=== PATIENT | male | born 1935 | race Caucasian/White ===

== ENCOUNTER 2022-09-15 09:46 | Emergency (ER) | payer MEDICARE, SELFPAY ==
[2022-09-15] VITALS (54 sets, daily range): BP systolic 100–167; BP diastolic 49–94; PULSE 55–84; RESP 13–40; TEMP 37.7; O2SAT 88–100; BMI 26.4
--- NOTE | 2022-09-15 09:49 | DI.RAD.S_ITS ---
PROCEDURE: XR CHEST 1V INDICATIONS: Weakness TECHNIQUE: One view of the chest was acquired. COMPARISON: None. FINDINGS: Surgical changes and devices: None. Lungs and pleura: Lungs are clear. No pleural effusions or pneumothorax. Mediastinum: Mediastinal contours appear normal. Heart size is normal. Bones and chest wall: No suspicious bony lesions. Overlying soft tissues appear unremarkable. IMPRESSION: No acute cardiopulmonary process demonstrated radiographically. Dictated by: Baron العراقي M.D. on 09/15/2022 at 10:22 Approved by: Baron العراقي M.D. on 09/15/2022 at 10:24
[2022-09-15 10:20] LABS: Add Manual Diff / Slide Review NO; Basophils Absolute Auto 0 /uL (0-100); Basophils Percent Auto 0.2 % (0-2); Eosinophils Absolute Auto 0 /uL (0-450); Eosinophils Percent Auto 0.9 % (2-4); Hematocrit 37.3 % (41-53); Hemoglobin 12.5 g/dL (13.5-17.5); Lymphocytes Absolute Auto 200 /uL (1100-4500); Mean Corpuscular HGB Conc 33.6 % (30-36); Mean Corpuscular Hemoglobin 30.1 PG (26-34); Mean Corpuscular Volume 89.5 fL (80-100); Monocytes Absolute Auto 700 /uL (0-900); Monocytes Percent Auto 14.8 % (3-14); Neutrophils Absolute Auto 3800 /uL (1500-7000); Neutrophils Percent Auto 79.1 % (50-75); Platelet Count 151 X10^3/uL (150-400); Red Blood Cell Count 4.17 X10^6/uL (4.5-5.9); Red Cell Distribution Width 13.6 % (11.6-14.8); White Blood Cell Count 4.8 X10^3/uL (4.5-11.0)
[2022-09-15 10:26] LABS: INR 1.2 (0.9-1.3); Prothrombin Time 13.9 SECONDS (10.1-12.7)
[2022-09-15] MEDS: SODIUM CHLORIDE 0.9% 1,000 ML 1000 ML IV (10:29)
[2022-09-15 10:31] LABS: Alanine Aminotransferase 26 IU/L (<50); Albumin 3.6 g/dL (3.5-5.0); Albumin Globulin Ratio 1.2 (1.0-2.8); Alkaline Phosphatase 65 U/L (38-126); Aspartate Aminotransferase 41 IU/L (17-59); BUN Creatinine Ratio 25.9 (6-22); Bilirubin Total 0.5 mg/dL (0.2-1.3); Blood Urea Nitrogen 15 mg/dL (9-20); Calcium 8.7 mg/dL (8.4-10.2); Carbon Dioxide 26 mmol/L (22-32); Chloride 99 mmol/L (98-107); Creatine Kinase 250 U/L (55-170); Estimated Glomerular Filt Rate > 60 mL/min (>60); Glucose 154 mg/dL (80-110); Lipase 118 U/L (23-300); Magnesium 1.9 mg/dL (1.6-2.3); Potassium 4.3 mmol/L (3.4-5.1); Sodium 134 mmol/L (137-145); Total Protein 6.6 g/dL (6.3-8.2)
[2022-09-15 10:32] LABS: Lactate (Lactic Acid) 1.6 mmol/L (0.7-2.1)
[2022-09-15 10:32] LABS: Appearance Urine UA CLEAR; Bilirubin Urine UA NEGATIVE (NEGATIVE); Color Urine UA YELLOW; Glucose Urine UA NEGATIVE (Negative); Ketones Urine UA 1+ (NEGATIVE); Leukocyte Esterase Urine UA NEGATIVE (NEGATIVE); Nitrite Urine UA NEGATIVE (Negative); Occult Blood Urine UA NEGATIVE (Negative); Protein Urine UA NEGATIVE (Negative); Specific Gravity Urine UA 1.025 (1.000-1.035)
[2022-09-15 10:43] LABS: NT-proBNP (BNP-Adult 18+) 2550 pg/mL (<450)
[2022-09-15 10:44] LABS: Bacteria Urine None Seen; Culture Indicated Urine Cult Not Indicated; RBC Urine None Seen (0-5/HPF); Squamous Epithelial Cell Urine None Seen (0-5/HPF); WBC Urine 0-1/HPF (0-5/HPF)
[2022-09-15 10:47] LABS: CKMB % Relative Index 3.7 % (1.5-5.0); Creatine Kinase MB 9.17 ng/mL (<2.37)
[2022-09-15 11:01] LABS: Influenza B - CEPHEID Flu B NEGATIVE (NEGATIVE); Respiratory Syncytial Virus Negative (Negative)
[2022-09-15 11:03] LABS: COVID-19 CEPHEID 4-PLEX PCR Negative (Negative)
[2022-09-15 11:04] LABS: Influenza A - CEPHEID Flu A POSITIVE (NEGATIVE)
[2022-09-15 11:08] LABS: HEMOLYSIS 17 (0-50)
--- NOTE | 2022-09-15 11:22 | ED.WEAKNESS ---
HPI - Weakness General Chief complaint: Weakness Stated complaint: GLF/ generalized weakness Time Seen by Provider: 09/15/22 09:48 Source: patient and EMS Mode of arrival: EMS History of Present Illness HPI Narrative: 87-year-old male former smoker does not have a primary care provider, lives at home with his presents by EMS for evaluation of increasing fatigue and weakness over the past few days. They have seen him a few times in the past 24 hours because he is become weak and fallen out of bed. He denies any injury as a consequence just is in requirement of assistance getting back into bed. He normally is ambulatory and is relatively high functioning at home. He generally feels unwell and specifically denies any headache or blurred vision. He denies any neck pain, chest pain or shortness of breath. He is had subjective fever and nausea but denies any vomiting. He has had a few episodes of diarrhea and admits to poor appetite. He denies any history of cardiac disease. Related Data Home Medications Medication Instructions Recorded Confirmed aspirin 81 mg tablet 81 mg PO DAILY 09/15/22 09/15/22 donepezil 10 mg tablet 90 mg PO DAILY 09/15/22 09/15/22 fluticasone propionate 100 1 inh inhalation BID 09/15/22 09/15/22 mcg/actuation blister powder for inhalation (Flovent Diskus) lisinopril 20 mg tablet 20 mg PO DAILY 09/15/22 09/15/22 metformin 850 mg tablet 850 mg PO BID 09/15/22 09/15/22 Allergies Allergy/AdvReac Type Severity Reaction Status Date / Time No Known Drug Allergies Allergy Verified 09/15/22 10:13 Review of Systems Review of Systems Narrative: GENERAL: See HPI HEENT: Denies sinus pain, ear pain, sore throat, difficulty swallowing, dizziness. RESPIRATORY: Denies dyspnea, cough, wheezing, hemoptysis, sputum. CARDIOVASCULAR: Denies chest pain, palpitations, orthopnea, edema, GASTROINTESTINAL: See HPI : Denies dysuria, frequency, incontinence, hematuria, urinary retention. MUSCULOSKELETAL: denies weakness, joint pain, or bony pain SKIN: Denies rash, skin lesions, or other NEUROLOGIC: Denies weakness, headache, numbness, change in speech, confusion, seizures, incoordination. PSYCHIATRIC: No concerning psychosocial issues. 12 point review of systems is negative except for those stated above Patient History Social History household members: spouse Smoking Status: Former smoker Smoking Status: Former smoker Substance Use Type: does not use Exam Narrative Exam Narrative: GENERAL: [87] year old patient appears stated age. Well-developed patient, in mild distress. HEAD: Atraumatic. Normocephalic. EYES: Pupils equal round and reactive. Extraocular motions intact. No scleral icterus. No injection or drainage. ENT: Dry mucous membranes Nose without bleeding, purulent drainage. Throat without erythema, tonsillar hypertrophy or exudate. Airway patent. NECK: Trachea midline. Non tender CARDIOVASCULAR: Regular rate and rhythm without murmurs, gallops, or rubs. RESPIRATORY: No significant work of breathing, decreased breath sounds throughout with faint crackles in bilateral bases GASTROINTESTINAL: Abdomen soft, non-tender, nondistended. EXTREMITIES: No edema or joint tenderness. BACK: Nontender without deformity or crepitance. No flank tenderness. NEURO: AOx3. SKIN: No rash or erythema of visible areas Initial Vital Signs Initial Vital Signs: Vital Signs Temperature 99.8 F H 09/15/22 09:48 Pulse Rate 84 09/15/22 09:48 Respiratory Rate 38 H 09/15/22 09:48 Blood Pressure 167/94 H 09/15/22 09:48 Pulse Oximetry 93 09/15/22 09:48 Oxygen Delivery Method 09/15/22 09:48 Course Orders Ordered: ED Orders 09/15/22 09:49 Chest [XR chest 1V] Stat GI Panel (Film Array) Stat EKG-12 Lead Stat 09/15/22 09:55 Urinalysis and Microscopic Stat 09/15/22 10:02 Covid-19 + FLU A/B + RSV - PCR Stat 09/15/22 10:10 Complete Blood Count AUTO DIFF Stat Comprehensive Metabolic Panel Stat D Dimer Stat Lactate (Lactic Acid) Stat Lipase Stat Magnesium Stat NT-proBNP (BNP-Adult 18+) Stat Partial Thromboplastin Time Q6H Prothrombin Time INR Stat Troponin & CK Cardiac Panel Stat 09/15/22 10:39 Blood Culture Stat 09/15/22 11:08 Consult to TECHNICAL OPERATIONS MANAGER - Plug Machine Operator Stat 09/15/22 11:45 CT angio chest PE protocol Stat 09/15/22 14:30 EC echo doppler complete Stat EKG-12 Lead Stat 09/15/22 18:45 Partial Thromboplastin Time Q6H 09/16/22 00:45 Partial Thromboplastin Time Q6H 09/16/22 06:45 Partial Thromboplastin Time Q6H Heparin Sodium/Dextrose (Heparin Drip) 25,000 unit in 500 mls @ 20 mls/hr IV CONT SHRUTHI; Protocol Last Admin: 09/15/22 13:08 Dose: 1,000 units/hr, 20 mls/hr Documented By: MLSriram Discontinued Medications Aspirin (Aspirin 81 Mg Chew Tab) 324 mg PO NOW ONE Stop: 09/15/22 12:46 Last Admin: 09/15/22 13:07 Dose: 324 mg Documented By: MLM Atorvastatin Calcium (Atorvastatin 20 Mg Tablet) 40 mg PO NOW ONE Stop: 09/15/22 12:46 Last Admin: 09/15/22 13:07 Dose: 40 mg Documented By: MLSriram Heparin Sodium (Porcine) (Heparin 5,000 Unit/Ml Vial) 5,000 unit IV NOW ONE Stop: 09/15/22 12:46 Last Admin: 09/15/22 13:07 Dose: 5,000 unit Documented By: MLSriram Sodium Chloride (Normal Saline 0.9%) 1,000 mls @ 1,000 mls/hr IV BOLUS ONE Stop: 09/15/22 10:48 Last Infusion: 09/15/22 12:42 Dose: 0 mls/hr Documented By: Admin: 09/15/22 10:29 Dose: 1,000 mls/hr Documented By: MLSriram Oseltamivir Phosphate (Oseltamivir 75 Mg Capsule) 75 mg PO NOW ONE Stop: 09/15/22 12:48 Last Admin: 09/15/22 13:08 Dose: 75 mg Documented By: MLSriram Consultations Consultation #1: discussed with Dr. Fink (Cardiology [facility]) and she agrees with heparin, aspirin, holding on beta-blockers given heart rate, transfer Consultation #2: Dr. Reaves (Cardiology [place]) heparin ok, troponin likely a consequence of Flu A and CHF, no obvious indication for diuresis at this time. Vital Signs Vital signs: Vital Signs - 8 hr 09/15/22 11:00 09/15/22 11:00 09/15/22 11:15 Pulse Rate 60 65 Respiratory Rate 16 22 Blood Pressure 108/55 L Pulse Oximetry 94 98 Oxygen Delivery Method Oxygen Flow Rate 09/15/22 11:30 09/15/22 11:31 09/15/22 11:31 Pulse Rate 60 60 Respiratory Rate 20 18 Blood Pressure 102/53 L Pulse Oximetry 97 97 Oxygen Delivery Method Oxygen Flow Rate 09/15/22 11:45 09/15/22 12:01 09/15/22 12:15 Pulse Rate 59 L 62 64 Respiratory Rate 17 40 H 22 Blood Pressure Pulse Oximetry 99 95 96 Oxygen Delivery Method Oxygen Flow Rate 09/15/22 12:30 09/15/22 12:33 09/15/22 12:33 Pulse Rate 66 65 Respiratory Rate 28 H 24 Blood Pressure 137/66 Pulse Oximetry 98 96 Oxygen Delivery Method Oxygen Flow Rate 09/15/22 12:45 09/15/22 13:00 09/15/22 13:00 Pulse Rate 70 74 Respiratory Rate 23 24 Blood Pressure 134/65 Pulse Oximetry 94 93 Oxygen Delivery Method Room Air Oxygen Flow Rate 09/15/22 13:15 09/15/22 13:30 09/15/22 13:31 Pulse Rate 79 64 Respiratory Rate 24 14 Blood Pressure 123/53 L Pulse Oximetry 94 97 Oxygen Delivery Method Oxygen Flow Rate 09/15/22 13:31 09/15/22 13:45 09/15/22 14:00 Pulse Rate 63 61 Respiratory Rate 22 21 Blood Pressure 112/57 L Pulse Oximetry 88 L 88 L Oxygen Delivery Method Room Air Oxygen Flow Rate 09/15/22 14:00 09/15/22 14:15 09/15/22 14:30 Pulse Rate 56 L 59 L Respiratory Rate 21 20 Blood Pressure 113/53 L Pulse Oximetry 96 97 Oxygen Delivery Method Nasal Cannula Oxygen Flow Rate 2 2 09/15/22 14:30 09/15/22 14:45 09/15/22 15:00 Pulse Rate 58 L 77 Respiratory Rate 21 21 Blood Pressure 116/55 L Pulse Oximetry 96 96 Oxygen Delivery Method Oxygen Flow Rate 09/15/22 15:00 09/15/22 15:15 09/15/22 15:30 Pulse Rate 69 64 Respiratory Rate 20 22 Blood Pressure 103/50 L Pulse Oximetry 96 96 Oxygen Delivery Method Oxygen Flow Rate 09/15/22 15:30 09/15/22 15:45 09/15/22 16:00 Pulse Rate 60 66 61 Respiratory Rate 20 23 26 H Blood Pressure Pulse Oximetry 95 94 93 Oxygen Delivery Method Oxygen Flow Rate 09/15/22 16:03 09/15/22 16:03 09/15/22 16:15 Pulse Rate 62 66 Respiratory Rate 20 25 H Blood Pressure 100/49 L Pulse Oximetry 93 94 Oxygen Delivery Method Oxygen Flow Rate 09/15/22 16:45 09/15/22 16:52 09/15/22 16:52 Pulse Rate 65 59 L Respiratory Rate 19 20 Blood Pressure 108/54 L Pulse Oximetry 94 96 Oxygen Delivery Method Oxygen Flow Rate MDM - Weakness Lab Data 09/15/22 10:10 09/15/22 10:10 Labs: Lab Results 09/15/22 09/15/22 09/15/22 Range/Units 09:55 10:02 10:10 WBC 4.8 (4.5-11.0) X10^3/uL RBC 4.17 L (4.5-5.9) X10^6/uL Hgb 12.5 L (13.5-17.5) g/dL Hct 37.3 L (41-53) % MCV 89.5 (80-100) fL MCH 30.1 (26-34) PG MCHC 33.6 (30-36) % RDW 13.6 (11.6-14.8) % Plt Count 151 (150-400) X10^3/uL Neut % (Auto) 79.1 H (50-75) % Lymph % (Auto) 5.0 L (25-40) % [place] % (Auto) 14.8 H (3-14) % Eos % (Auto) 0.9 L (2-4) % Baso % (Auto) 0.2 (0-2) % Neut # (Auto) 3800 (0328-4402) /uL Lymph # (Auto) 200 L (3354-6780) /uL [place] # (Auto) 700 (0-900) /uL Eos # (Auto) 0 (0-450) /uL Baso # (Auto) 0 (0-100) /uL PT (10.1-12.7) SECONDS INR (0.9-1.3) APTT (26-36) SECONDS D-Dimer (<500) ng/ml Sodium (137-145) mmol/L Potassium (3.4-5.1) mmol/L Chloride (98-107) mmol/L Carbon Dioxide (22-32) mmol/L BUN (9-20) mg/dL Creatinine (0.66-1.25) mg/dL Estimated GFR (>60) mL/min BUN/Creatinine Ratio (6-22) Glucose (80-110) mg/dL Lactate (0.7-2.1) mmol/L Calcium (8.4-10.2) mg/dL Magnesium (1.6-2.3) mg/dL Total Bilirubin (0.2-1.3) mg/dL AST (17-59) IU/L ALT (<50) IU/L Alkaline Phosphatase (38-126) U/L Total Creatine Kinase (55-170) U/L CK-MB (CK-2) (<2.37) ng/mL CK-MB (CK-2) Rel Index (1.5-5.0) % Troponin I (0.01-0.034) ng/mL NT-Pro-B Natriuret Pep (<450) pg/mL Total Protein (6.3-8.2) g/dL Albumin (3.5-5.0) g/dL Globulin (1.7-4.1) g/dL Albumin/Globulin Ratio (1.0-2.8) Lipase (23-300) U/L Urine Color Yellow Urine Appearance Clear Urine pH 6.0 (4.5-8.0) Ur Specific [place] 1.025 (1.000-1.035) Urine Protein Negative (Negative) Urine Glucose (UA) Negative (Negative) g/dL Urine Ketones 1+ H (NEGATIVE) Urine Occult Blood Negative (Negative) Urine Nitrate Negative (Negative) Urine Bilirubin Negative (NEGATIVE) Urine Urobilinogen 1.0 (0.2) E.U./dL Ur Leukocyte Esterase Negative (NEGATIVE) Urine RBC None seen (0-5/HPF) Urine WBC 0-1/hpf (0-5/HPF) Ur Squamous Epith Cells None seen (0-5/HPF) Urine Bacteria None seen (None) Ur Culture Indicated? Cult not indicated SARS-CoV-2 (PCR) Negative (Negative) Influenza A (RT-PCR) Flu a positive H (NEGATIVE) Influenza B (RT-PCR) Flu b negative (NEGATIVE) RSV (PCR) Negative (Negative) 02/09/15/22 09/15/22 Range/Units 10:10 10:10 10:10 WBC (4.5-11.0) X10^3/uL RBC (4.5-5.9) X10^6/uL Hgb (13.5-17.5) g/dL Hct (41-53) % MCV (80-100) fL MCH (26-34) PG MCHC (30-36) % RDW (11.6-14.8) % Plt Count (150-400) X10^3/uL Neut % (Auto) (50-75) % Lymph % (Auto) (25-40) % [place] % (Auto) (3-14) % Eos % (Auto) (2-4) % Baso % (Auto) (0-2) % Neut # (Auto) (9234-2932) /uL Lymph # (Auto) (3733-1327) /uL [place] # (Auto) (0-900) /uL Eos # (Auto) (0-450) /uL Baso # (Auto) (0-100) /uL PT 13.9 H (10.1-12.7) SECONDS INR 1.2 (0.9-1.3) APTT (26-36) SECONDS D-Dimer (<500) ng/ml Sodium 134 L (137-145) mmol/L Potassium 4.3 (3.4-5.1) mmol/L Chloride 99 (98-107) mmol/L Carbon Dioxide 26 (22-32) mmol/L BUN 15 (9-20) mg/dL Creatinine 0.58 L (0.66-1.25) mg/dL Estimated GFR > 60 (>60) mL/min BUN/Creatinine Ratio 25.9 H (6-22) Glucose 154 H (80-110) mg/dL Lactate 1.6 (0.7-2.1) mmol/L Calcium 8.7 (8.4-10.2) mg/dL Magnesium 1.9 (1.6-2.3) mg/dL Total Bilirubin 0.5 (0.2-1.3) mg/dL AST 41 (17-59) IU/L ALT 26 (<50) IU/L Alkaline Phosphatase 65 (38-126) U/L Total Creatine Kinase 250 H (55-170) U/L CK-MB (CK-2) 9.17 H (<2.37) ng/mL CK-MB (CK-2) Rel Index 3.7 (1.5-5.0) % Troponin I 1.620 H* (0.01-0.034) ng/mL NT-Pro-B Natriuret Pep 2550 H (<450) pg/mL Total Protein 6.6 (6.3-8.2) g/dL Albumin 3.6 (3.5-5.0) g/dL Globulin 3.0 (1.7-4.1) g/dL Albumin/Globulin Ratio 1.2 (1.0-2.8) Lipase 118 (23-300) U/L Urine Color Urine Appearance Urine pH (4.5-8.0) Ur Specific [place] (1.000-1.035) Urine Protein (Negative) Urine Glucose (UA) (Negative) g/dL Urine Ketones (NEGATIVE) Urine Occult Blood (Negative) Urine Nitrate (Negative) Urine Bilirubin (NEGATIVE) Urine Urobilinogen (0.2) E.U./dL Ur Leukocyte Esterase (NEGATIVE) Urine RBC (0-5/HPF) Urine WBC (0-5/HPF) Ur Squamous Epith Cells (0-5/HPF) Urine Bacteria (None) Ur Culture Indicated? SARS-CoV-2 (PCR) (Negative) Influenza A (RT-PCR) (NEGATIVE) Influenza B (RT-PCR) (NEGATIVE) RSV (PCR) (Negative) 09/15/22 09/15/22 Range/Units 10:10 10:10 WBC (4.5-11.0) X10^3/uL RBC (4.5-5.9) X10^6/uL Hgb (13.5-17.5) g/dL Hct (41-53) % MCV (80-100) fL MCH (26-34) PG MCHC (30-36) % RDW (11.6-14.8) % Plt Count (150-400) X10^3/uL Neut % (Auto) (50-75) % Lymph % (Auto) (25-40) % [place] % (Auto) (3-14) % Eos % (Auto) (2-4) % Baso % (Auto) (0-2) % Neut # (Auto) (9912-1002) /uL Lymph # (Auto) (5949-5336) /uL [place] # (Auto) (0-900) /uL Eos # (Auto) (0-450) /uL Baso # (Auto) (0-100) /uL PT (10.1-12.7) SECONDS INR (0.9-1.3) APTT 32 (26-36) SECONDS D-Dimer 6557 H (<500) ng/ml Sodium (137-145) mmol/L Potassium (3.4-5.1) mmol/L Chloride (98-107) mmol/L Carbon Dioxide (22-32) mmol/L BUN (9-20) mg/dL Creatinine (0.66-1.25) mg/dL Estimated GFR (>60) mL/min BUN/Creatinine Ratio (6-22) Glucose (80-110) mg/dL Lactate (0.7-2.1) mmol/L Calcium (8.4-10.2) mg/dL Magnesium (1.6-2.3) mg/dL Total Bilirubin (0.2-1.3) mg/dL AST (17-59) IU/L ALT (<50) IU/L Alkaline Phosphatase (38-126) U/L Total Creatine Kinase (55-170) U/L CK-MB (CK-2) (<2.37) ng/mL CK-MB (CK-2) Rel Index (1.5-5.0) % Troponin I (0.01-0.034) ng/mL NT-Pro-B Natriuret Pep (<450) pg/mL Total Protein (6.3-8.2) g/dL Albumin (3.5-5.0) g/dL Globulin (1.7-4.1) g/dL Albumin/Globulin Ratio (1.0-2.8) Lipase (23-300) U/L Urine Color Urine Appearance Urine pH (4.5-8.0) Ur Specific [place] (1.000-1.035) Urine Protein (Negative) Urine Glucose (UA) (Negative) g/dL Urine Ketones (NEGATIVE) Urine Occult Blood (Negative) Urine Nitrate (Negative) Urine Bilirubin (NEGATIVE) Urine Urobilinogen (0.2) E.U./dL Ur Leukocyte Esterase (NEGATIVE) Urine RBC (0-5/HPF) Urine WBC (0-5/HPF) Ur Squamous Epith Cells (0-5/HPF) Urine Bacteria (None) Ur Culture Indicated? SARS-CoV-2 (PCR) (Negative) Influenza A (RT-PCR) (NEGATIVE) Influenza B (RT-PCR) (NEGATIVE) RSV (PCR) (Negative) Imaging Data ECHO: Radiologist Impression: Normal LV size, and thickness with severely reduced systolic function, EF 25-30%, severe hypokinesis with akinesis 6 of the true apex ECG Data Interpretation: [1051] EKG is normal sinus rhythm rate [72 ] and ST depressions in septal leads, no ST elevations. MDM Narrative Medical decision making narrative: CC: 79-year-old male with weakness and multiple falls Complicating co-morbidities: Age Data collected from: Patient Medical records reviewed: No priors reviewed Differential considered, but not limited to: Sepsis, UTI, electrolyte abnormality, dehydration, ME versus Exam documented above, pertinent findings include: Dry mucous membranes, fatigue, lungs clear and nonlabored, abdomen soft Lab Test results independently reviewed as above. Pertinent findings: Critically elevated troponin and BNP, flu positive Independently reviewed EKG as above Imaging studies independently reviewed: Echo noted above, CTA without evidence of PE Consultations: Discussed with cardiology (see notes above), Dr. Wilkinson hospitalist ([place]) Treatments:heparin, aspirin, atorvastatin, Tamiflu Discussion:87M full code with a few days of generalized weakness and multiple falls. Subsequently found to have EKG changes with ST depressions in septal leads, Flu A Positive. Critically elevated D-dimer and given the possibility of PE contributing CTA is obtained without evidence of PE, furthermore though BNP is significantly elevated the patient is dry on exam without crackles or respiratory distress, imaging does not demonstrate any significant fluid. Patient has been placed on heparin per discussion with Cardiology and will need transfer for further workup, stabilization and final disposition Critical Care Time Critical Care Time Critical Care Time: Yes Total Critical Care Time: 30 Attestation: The high probability of a clinically significant, sudden or life threatening deterioration of the [CV] system(s) required my full and direct attention, intervention and personal management. The aggregate critical care time was [30] minutes. This time is in addition to time spent performing reported procedures but includes the following: [x] Data Review and interpretation [x] Patient assessment and monitoring of vital signs [x] Documentation [x] Medication orders and management Discharge Plan Departure Patient Disposition: Xfer Acute [facility] Clinical Impression: Acute non-ST elevation myocardial infarction (NSTEMI), Flu Prescriptions: No Action donepezil 10 mg tablet 90 mg PO DAILY lisinopril 20 mg tablet 20 mg PO DAILY metformin 850 mg tablet 850 mg PO BID Flovent Diskus 100 mcg/actuation blister with device 1 inh INHALATION BID aspirin 81 mg Tablet 81 mg PO DAILY Referrals: Lillian Vega ARNP [Primary Care Provider] -
[2022-09-15 11:40] LABS: D Dimer 6557 ng/ml (<500)
--- NOTE | 2022-09-15 11:45 | DI.CT.S_ITS ---
PROCEDURE: CT ANGIO CHEST PE PROTOCOL INDICATIONS: fatigue, critical trop/BNP/Dimer TECHNIQUE: After the administration of intravenous contrast, 2 mm thick sections acquired from the pulmonary apices to the posterior costophrenic angles. 3-dimensional maximum intensity projection (MIP) coronal and sagittal reformats were then acquired through the thorax. For radiation dose reduction, the following was used: automated exposure control, adjustment of mA and/or kV according to patient size. COMPARISON: [facility], CR, XR CHEST 1V, 09/15/2022, 10:07. FINDINGS: No pulmonary artery filling defect to indicate pulmonary embolism. Normal caliber main pulmonary trunk. Normal heart size. No pericardial effusion. No bowing of the interventricular septum. No reflux of contrast material into the hepatic veins. Several small mixed consolidative and ground-glass airspace opacities in both lower lobes with some associated bronchiectasis. No focal consolidation. No pleural effusion or pneumothorax. No threshold enlarged thoracic lymph node by CT size criteria. Questionable slight nodular contour of the liver with mild upper abdominal lymphadenopathy and suspected cavernous transformation of the portal vein raises concern for cirrhosis and portal hypertension. No acute finding in the partially visualized upper abdomen. IMPRESSION: No evidence of pulmonary embolism. Small mixed consolidative and ground-glass airspace opacities in the lower lobes are likely infectious/inflammatory, many associated with bronchiectasis indicating that these may be chronic in nature. This could be due to previous episodes of aspiration pneumonia or mucous plugging, versus another lower lobe infectious process. Suggestion of cirrhotic liver morphology with cavernous transformation and reactive upper abdominal lymphadenopathy. Correlate with history and LFTs. Dictated by: Baron العراقي M.D. on 09/15/2022 at 12:14 Approved by: Baron العراقي M.D. on 09/15/2022 at 12:19
[2022-09-15 12:58] LABS: PTT Partial Thromboplastin Tim 32 SECONDS (26-36)
[2022-09-15] MEDS: ATORVASTATIN 20 MG TABLET 40 MG PO (13:07)
[2022-09-15] MEDS: ASPIRIN 81 MG CHEW TAB 324 MG PO (13:07)
[2022-09-15] MEDS: HEPARIN 5,000 UNIT/ML VIAL 5000 UNIT IV (13:07)
[2022-09-15] MEDS: OSELTAMIVIR 75 MG CAPSULE PO (13:08)
[2022-09-15] MEDS: HEPARIN DRIP 25,000 UNIT/500 ML IV.SOLN 20 UNIT IV (13:08)
--- NOTE | 2022-09-15 13:51 | CM.DANOTE ---
CM Discharge Assessment Patient is an 87yo male who is admitted to the ED for concern of weakness. SW met with pt at bedside. , Latonya, and sister in law, Marcia, were also bedside. Pt is A&Ox4. he is hard of hearing and majority of information provided by . reports pt has had numerous falls in the past few days. He recently began using a FWW, when historically he had been independently ambulatory. Pt remains independent with showering and toileting. Until recently pt drove himself but notes shortly after his 87th birthday he got a letter from the [facility] yanking his license. [id number] provides transportation for spouse and can provide transportation for the patient in the future. Pt and are independent in cooking and have no supports in the house. No hx of HH or SNF placement. they have been having groceries delivered in recent months. Pt PCP reportedly is on medical leave and he is in need of a new PCP. He has continued to have medications refilled by primary clinic [facility]. Pt has [facility] and [employer] managed medicare. Pt is expected to be admitted. He will need a new PCP and likely ultimate plan will Home with Home health vs SNF. LUTHER Michelle LICSW Discharge Planning/Care Management Discharge Assessment Start: 09/15/22 13:02 Freq: Status: Active Protocol: Document 09/15/22 13:42 VR (Rec: 09/15/22 13:46 VR [id number]) Discharge Planning Assessment Assigned Fire Equipment Operator LUTHER Richardson LICSW DPOA/Assigned Designee Name Sister-in- law Marcia Naranjo Contact Information [phone] Advance Directives? No History Provided By Family Member,Significant Other Has Patient been admitted in last 30 No days? Prior Living Arrangements House Household Members spouse Type of transportation used prior to Relies on Others admit Comment until recently pt drove his self. notes he recently had his license revoked. Independent with ADL's Yes: pt recently began using a FWW Is patient alert and oriented? Yes Caregiver for Another No Patient/Family Preference Home with Home Health Barriers to Discharge No Discharge Plan Home with Home Health Community Services Physical Therapy If patient plan is home with home health No : Has signed face to face form been completed? Medicare Choice List Provided No Has Agency SNF been contacted No Please Provide Date Initial DC 09/15/22 Assessment Was Performed
--- NOTE | 2022-09-15 14:30 | DI.ECHO.S_ITS ---
[facility] +---------+ : : [address] : [address] : : : : [id number] : : : : Phone: [phone]+ Echocardiogram Report + + :Name: ITZEL GARY Study Date: 09/15/2022 Height: 73 in : :[facility] [employer] [facility] ReadingLocation: Weight: 200 lb : : Gender: Male BSA: 2.2 m2 : :: 1935 Age: 87 yrs BP: 116/55 mmHg: :Reason For Study: NSTEMI : :Ordering Physician: ROGERIO, : :MENDEZ Performed By: Charity Montiel : :Referring: MENDEZ BEATTY : + + Interpretation Summary 1) Normal left ventricular size and thickness with severely reduced systolic function (EF 25-30%). 2) Severe hypokinesis with akinesis of the true apex. 3) Mildly enlarged ventricle with normal function. 4) There is mild to moderate mitral regurgitation. 5) There is mild aortic stenosis (valve area 1.6cm2, mean gradient 15mmHg). 6) No prior Echo available for comparison. Procedure: A two-dimensional transthoracic echocardiogram with color flow and Doppler was performed. The study quality was technically adequate. There is no prior echocardiogram noted for this patient. The patient was in sinus bradycardia with heart rates between 50-65 bpm during the exam. Left Ventricle: The left ventricle is normal in size and wall thickness. The ejection fraction is estimated to be 25-30%. Severe hypokinesis with akinesis of the true apex. Right Ventricle: The right ventricle is mildly dilated. The right ventricular systolic function is normal. Atria: The left atrium is severely dilated. Right atrial size is normal. There is no Doppler evidence for an interatrial shunt. Mitral Valve: The mitral valve leaflets are mildly calcified. There is mild mitral annular calcification. There is mild to moderate mitral regurgitation. Aortic Valve: The aortic valve is moderately calcified. There is mild aortic stenosis. The peak aortic velocity is 2.4 m/sec. The aortic valve mean gradient is 15 mmHg. The calculated aortic valve area is 1.6 cm2. No aortic regurgitation is present. Tricuspid Valve: The tricuspid valve is normal in structure and function. There is mild tricuspid regurgitation. The right ventricular systolic pressure is estimated to be at least 43 mmHg based on an estimated right atrial pressure of 8 mm Hg. Pulmonic Valve: The pulmonic valve is not well seen, but is grossly normal. Great Vessels: The aortic root is normal size. The dimensions of the ascending aorta are normal. The IVC is dilated (diameter is greater than 2.1 cm) yet it collapses greater than 50% with a sniff. This suggests a right atrial pressure of 8 mm Hg. Pericardium/ Pleura There is no pericardial effusion. There is no pleural effusion. MMode/2D Measurements & Calculations LVIDd: 5.7 cm LVOT diam: 2.4 cm LVIDs: 5.1 cm Ao root diam: 3.8 cm FS: 10.3 % asc Aorta Diam: 3.6 cm EPSS: 2.0 cm Ao Arch Diam (Prox Trans): 3.5 cm IVSd: 0.80 cm LVPWd: 1.2 cm LV oro. diameter/BSA (cm/m^2): 2.6 LV sys. diameter/BSA (cm/m^2): 2.4 LA A2 area: 28.6 cm2 RA long axis: 5.6 cm LA A4 area: 26.5 cm2 RA area: 20.4 cm2 LA length (vol): 5.7 cm RA vol: 62.5 ml LA vol: 113.0 ml RA : 29.1 ml/m2 LA vol index: 52.5 ml/m2 IVC diam: 2.6 cm RVD1 (basal): 4.2 cm RVD2 (mid): 3.4 cm TAPSE: 2.2 cm Doppler Measurements & Calculations Ao V2 max: 244.2 cm/sec LVOT Max Pollo: 88.1 cm/sec Ao V2 mean: 178.9 cm/sec LV V1 max P.1 mmHg Ao max P.0 mmHg LV V1 VTI: 18.1 cm Ao mean P.5 mmHg JACK(I,D): 1.6 cm2 Ao V2 VTI: 49.7 cm JACK(V,D): 1.6 cm2 sev ratio: 0.37 JACK indexed to BSA (cm^2/m^2): 0.76 MV E max pollo: 111.6 cm/sec TR max pollo: 295.5 cm/sec MV A max pollo: 80.5 cm/sec TR max P.9 mmHg MV E/A: 1.4 PA pr(Accel): 20.8 mmHg Med Peak E' Pollo: 4.3 cm/sec E/E' med: 25.9 Lat Peak E' Pollo: 12.0 cm/sec E/E' lat: 9.3 E/e' average: 17.6 MV dec time: 0.19 sec MR ERO: 0.23 cm2 MR PISA: 3.7 cm2 SV(LVOT): 81.0 ml MR flow rate: 118.4 cm3/sec MR PISA radius: 0.77 cm Reading Physician:04:12 PM
--- NOTE | 2022-09-15 18:14 | PC.NURSE ---
Pt up to chair, eating dinner. Pt needed max assist to chair.
--- NOTE | 2022-09-15 19:43 | PC.NURSE ---
Latonya, , notified of pt destination and time of departure.
[2022-09-15 20:06] LABS: PTT Partial Thromboplastin Tim 85 SECONDS (26-36)
--- NOTE | 2022-11-27 09:51 | PC.NURSE ---
Late Entry- per RN patient was transfered out of ED 09/15 @ 2130 with Heparin drip hanging- handoff to transfer team.
== END 2022-09-15 21:30 | disposition short-term general hospital (02) ==
PROVIDERS: Emergency Provider Emergency Medicine; PCP Nurse Practitioner Family
DX: I21.4 Non-ST elevation (NSTEMI) myocardial infarction (principal); J10.1 Influenza due to other identified influenza virus with other respiratory manifestations; R74.8 Abnormal levels of other serum enzymes; R79.1 Abnormal coagulation profile; R29.6 Repeated falls; R11.0 Nausea; Z20.822 Contact with and (suspected) exposure to COVID-19
CPT/HCPCS: 0241U; 36415; 71045; 71275; 80053; 81001; 82550; 82553; 83605; 83690; 83735; 83880; 84484; 85025; 85379; 85610; 85730; 87040; 93005; 93306; 96361; 96365; 96366; 96375; 99285; 99291; J1644; Q9967

== ENCOUNTER 2024-03-20 06:24 | Emergency (ER) | payer MEDICARE, SELFPAY ==
[2024-03-20 06:25] VITALS: BP 111/58; PULSE 85; RESP 24; TEMP 36.6; O2SAT 98
--- NOTE | 2024-03-20 06:30 | DI.CT.S_ITS ---
PROCEDURE: CT HEAD/BRAIN WO CON INDICATIONS: GLF, PROBABLE HEAD/NECK TRAUMA TECHNIQUE: Noncontrast 4.5 mm thick angled axial sections acquired from the foramen magnum to the vertex, with coronal and sagittal reformats. For radiation dose reduction, the following was used: automated exposure control, adjustment of mA and/or kV according to patient size. COMPARISON: [facility], CT, CT CERVICAL SPINE WO CON, 03/20/2024, 6:34. FINDINGS: Image quality: Mild streak artifact can be seen through the skull base. CSF spaces: Basal cisterns are patent. No extra-axial fluid collections. The ventricles are symmetric in size and shape. Brain: No intracranial bleeds or masses. There is cerebral volume loss for age, with resultant ventricular and sulcal prominence. There are periventricular and deep white matter chronic small vessel ischemic changes. There is intracranial internal carotid artery atherosclerosis. Skull and face: Calvarium and visualized facial bones appear intact, without suspicious lesions. Sinuses: Advanced nasal polyps are seen, which extend into the nasopharynx. There is near complete opacification seen of the right maxillary sinus and there is at least moderate mucosal thickening within the left maxillary sinus. There is near complete opacification of the ethmoid air cells. IMPRESSION: No acute intracranial hemorrhage is seen. No acute intracranial pathology. Advanced nasal polyps are seen, with associated paranasal sinus opacification. Dictated by: Praful Whyte M.D. on 03/20/2024 at 6:36 Approved by: Praful Whyte M.D. on 03/20/2024 at 6:37
--- NOTE | 2024-03-20 06:30 | DI.CT.S_ITS ---
PROCEDURE: CT CERVICAL SPINE WO CON INDICATIONS: GLF, PROBABLE HEAD/NECK TRAUMA TECHNIQUE: Noncontrast 3 mm thick sections acquired from the skull base to the T4 level. Sagittal and coronal reformats were then constructed. For radiation dose reduction, the following was used: automated exposure control, adjustment of mA and/or kV according to patient size. COMPARISON: [facility], CT, CT HEAD/BRAIN WO CON, 03/20/2024, 6:34. FINDINGS: Image quality: Excellent. Bones: No fractures or dislocations. Visualized superior ribs are intact. Prominent multifocal degenerative change can be seen. There is moderate to severe disc space narrowing seen at C5-C6, with at least moderate disc space narrowing seen at C4-C5 and C6-C7. Posteriorly directed endplate osteophytes are seen, which are worst at C4-C5 and C5-C6. Reversal of the normal cervical lordosis is seen, with the apex at the C5-C6 level. There is minimal retrolisthesis seen at C5-C6. Soft tissues: Prevertebral soft tissues are normal in thickness. No paravertebral hematomas. No apical pneumothoraces. Extensive nasal polyps are partially seen, extending into the nasopharynx. Advanced atherosclerotic calcification can be seen of the carotid bifurcation regions. IMPRESSION: No displaced fracture or traumatic subluxation. Advanced underlying degenerative changes are seen. Prominent nasal polyps can be seen. Dictated by: Praful Whyte M.D. on 03/20/2024 at 6:33 Approved by: Praful Whyte M.D. on 03/20/2024 at 6:35
--- NOTE | 2024-03-20 06:31 | ED_ITS ---
HPI - Fall <Angela Reaves MD - Last Filed: 03/21/24 02:08> General Chief Complaint: Fall Stated Complaint: GLF, skintear Time Seen by Provider: 03/20/24 06:30 History of Present Illness HPI Narrative: 88-year-old male with history of dementia, coronary disease, nxp-qthkeja-ivcnobkli diabetes presents by EMS from home for ground level fall. Patient states that he was getting up out of bed to go to the bathroom in the next thing he knows he was on the ground. He was not remember how he fell or the events leading up to the fall. He states that he was unable to get up off the ground and called 911. EMS noted a skin tear to the left forearm, which is wrapped in gauze, and patient was transported to the ER for evaluation. On evaluation patient states he feels ?fine?. He does not remember how he fell. He does not know if he hit his head or not. Related Data Home Medications Medication Instructions Recorded Confirmed aspirin 81 mg tablet 81 mg PO DAILY 09/15/22 09/15/22 donepezil 10 mg tablet 90 mg PO DAILY 09/15/22 09/15/22 fluticasone propionate 100 1 inh inhalation BID 09/15/22 09/15/22 mcg/actuation blister powder for inhalation (Flovent Diskus) lisinopril 20 mg tablet 20 mg PO DAILY 09/15/22 09/15/22 metformin 850 mg tablet 850 mg PO BID 09/15/22 09/15/22 Previous Rx's Medication Instructions Recorded doxycycline hyclate 100 mg capsule 100 mg PO BID #20 caps 03/20/24 Allergies Allergy/AdvReac Type Severity Reaction Status Date / Time No Known Drug Allergies Allergy Verified 09/15/22 10:13 Review of Systems <Kemi Wild MD - Last Filed: 03/20/24 10:13> Review of Systems Narrative: Pertinent positive and negative findings as per HPI Patient History <Angela Reaves MD - Last Filed: 03/21/24 02:08> Social History household members: spouse Smoking Status: Former smoker Smoking Status: Former smoker Substance Use Type: does not use Exam <Angela Reaves MD - Last Filed: 03/21/24 02:08> Initial Vital Signs Initial Vital Signs: Vital Signs Temperature 97.8 F 03/20/24 06:25 Pulse Rate 85 03/20/24 06:25 Respiratory Rate 24 03/20/24 06:25 Blood Pressure 111/58 L 03/20/24 06:25 Pulse Oximetry 98 03/20/24 06:25 Oxygen Delivery Method Room Air 03/20/24 06:25 Const: Awake, alert, frail, debilitated Cardiac: regular rate, regular rhythm RESP: unlabored, clear bilaterally, no wheezing MSK: Atraumatic, full range of motion, pulses equal Skin: Warm, Dry, 3 x 4 cm skin tear left forearm Neuro: AO x2, CN II-XII grossly intact, moves all extremities <Kemi Wild MD - Last Filed: 03/20/24 10:13> Initial Vital Signs Initial Vital Signs: Vital Signs Temperature 97.8 F 03/20/24 06:25 Pulse Rate 85 03/20/24 06:25 Respiratory Rate 24 03/20/24 06:25 Blood Pressure 111/58 L 03/20/24 06:25 Pulse Oximetry 98 03/20/24 06:25 Oxygen Delivery Method Room Air 03/20/24 06:25 Course <Angela Reaves MD - Last Filed: 03/21/24 02:08> Orders Ordered: Discontinued Medications Bacitracin (Bacitracin Oint 0.9 Gm Pckt) 1 applic TOP NOW ONE Stop: 03/20/24 08:46 Last Admin: 03/20/24 08:56 Dose: 1 applic Documented By: CATERINA Diphtheria/Tetanus/Acell Pertussis (Tet,Diph,Pertuss(Acell),Vac/Pf 0.5 Ml Syringe) 0.5 ml IM .ONCE ONE Stop: 03/20/24 06:31 Last Admin: 03/20/24 07:33 Dose: 0.5 ml Documented By: CTS Vital Signs Vital signs: Vital Signs - 8 hr 03/20/24 06:25 Temperature 97.8 F Pulse Rate 85 Respiratory Rate 24 Blood Pressure 111/58 L Pulse Oximetry 98 Oxygen Delivery Method Room Air <Kemi Wild MD - Last Filed: 03/20/24 10:13> Orders Ordered: Discontinued Medications Bacitracin (Bacitracin Oint 0.9 Gm Pckt) 1 applic TOP NOW ONE Stop: 03/20/24 08:46 Last Admin: 03/20/24 08:56 Dose: 1 applic Documented By: CATERINA Diphtheria/Tetanus/Acell Pertussis (Tet,Diph,Pertuss(Acell),Vac/Pf 0.5 Ml Syringe) 0.5 ml IM .ONCE ONE Stop: 03/20/24 06:31 Last Admin: 03/20/24 07:33 Dose: 0.5 ml Documented By: CTS Vital Signs Vital signs: Vital Signs - 8 hr 03/20/24 06:25 Temperature 97.8 F Pulse Rate 85 Respiratory Rate 24 Blood Pressure 111/58 L Pulse Oximetry 98 Oxygen Delivery Method Room Air MDM - Fall <Angela Reaves MD - Last Filed: 03/21/24 02:08> Differential Diagnosis Differential diagnosis: Likely concussion with loss of consciousness, concussion without loss of consciousness and other (closed head injury) ECG Data Interpretation: Sinus bradycardia at [address] depressions in V4-V6 unchanged from previous EKG 08/2022 [facility] Narrative Medical decision making narrative: Nontoxic patient with fall, possible head injury. Patient does have skin tear to left forearm. Patient has donepezil listed as 1 of his medications and does not remember the fall. He states that other than the pain in his forearm he feels fine and has no complaints. Suspect mechanical fall. EKG shows sinus bradycardia, ST depressions in lateral leads initially. Concerning, however when compared to an EKG from August 2022 these are unchanged. Care of patient signed to Dr. Wild at 0700 Imaging studies: CT scan of the head is unremarkable CT scan of the cervical spine is reassuring On exam, he does have skin tear on the left elbow that is cleaned with Steri- Strips applied and dressing applied. He is minor abrasions on both knees and looks like he was crawling on the floor which he does not report. Has minor scratch over the left flank with no underlying contusion or tenderness. He has a skin tear/laceration along the skin fold under the right 2nd toe. Does not appear to be infected. He was not aware of this. Suspect that there is moderate degree of peripheral neuropathy. Antibiotic ointment is placed. Because he does not have sensation to the area, I do not think he is able to physically see the area will suggest 10 days of doxycycline to make sure that this does not get infected. At rest the wound is appropriate we closed and does not need sutures Patient to clearly has some cognitive decline. He states he lives independently in [place], his son lives on [address] and occasionally checks with him. He does not know whose primary care physician is, he was able to independently called 911. Definitely concern for safety at home. We will see if I can talk with his son. Patient will be safe for discharge home. Care is reviewed with the son. He notes that his dad is actually been doing very well at home. It sounds like they are in close communication. Patient does have wound care come in 3 times a week so we will ask them to look at the toe, next appointment is scheduled for tomorrow. Patient will be discharged with the son <Kemi Wild MD - Last Filed: 03/20/24 10:13> [facility] Narrative Medical decision making narrative: Nontoxic patient with fall, possible head injury. Patient does have skin tear to left forearm. Patient has donepezil listed as 1 of his medications and does not remember the fall. He states that other than the pain in his forearm he feels fine and has no complaints. Suspect mechanical fall. EKG shows sinus bradycardia, ST depressions in lateral leads initially. Concerning, however when compared to an EKG from August 2022 these are unchanged. Imaging studies: CT scan of the head is unremarkable CT scan of the cervical spine is reassuring On exam, he does have skin tear on the left elbow that is cleaned with Steri- Strips applied and dressing applied. He is minor abrasions on both knees and looks like he was crawling on the floor which he does not report. Has minor scratch over the left flank with no underlying contusion or tenderness. He has a skin tear/laceration along the skin fold under the right 2nd toe. Does not appear to be infected. He was not aware of this. Suspect that there is moderate degree of peripheral neuropathy. Antibiotic ointment is placed. Because he does not have sensation to the area, I do not think he is able to physically see the area will suggest 10 days of doxycycline to make sure that this does not get infected. At rest the wound is appropriate we closed and does not need sutures Patient to clearly has some cognitive decline. He states he lives independently in [place], his son lives on [address] and occasionally checks with him. He does not know whose primary care physician is, he was able to independently called 911. Definitely concern for safety at home. We will see if I can talk with his son. Patient will be safe for discharge home. Care is reviewed with the son. He notes that his dad is actually been doing very well at home. It sounds like they are in close communication. Patient does have wound care come in 3 times a week so we will ask them to look at the toe, next appointment is scheduled for tomorrow. Patient will be discharged with the son Discharge Plan Departure Patient Disposition: Home Clinical Impression: Skin tear Fall Qualifiers: Encounter type: initial encounter Qualified Code(s): W19.XXXA - Unspecified fall, initial encounter Wound, open, toe Qualifiers: Encounter type: initial encounter Qualified Code(s): S91.109A - Unspecified open wound of unspecified toe(s) without damage to nail, initial encounter Activity Restrictions/Additional Instructions: Thank you for coming in today Fortunately, does not look like you caused significant injury with your fall today. There was no bleeding inside your head, you did not cause any fractures to your neck You have a skin tear on the left elbow. This should heal and has been dressed in the emergency department. Please do check the dressings daily You also have a small tear in the skin under your 2nd toe on your right foot. I am concerned that this can get infected. Because of this I am going to place you on 10 days of doxycycline, an antibiotic. Please make sure you complete the full course Prescriptions: New doxycycline hyclate 100 mg capsule 100 mg PO BID Qty: 20 0RF No Action donepezil 10 mg tablet 90 mg PO DAILY lisinopril 20 mg tablet 20 mg PO DAILY metformin 850 mg tablet 850 mg PO BID Flovent Diskus 100 mcg/actuation blister with device 1 inh INHALATION BID aspirin 81 mg Tablet 81 mg PO DAILY Referrals: Lillian Vega ARNP [Primary Care Provider] - Stand Alone Forms: Patient Portal/API
--- NOTE | 2024-03-20 06:46 | EKG_ITS ---
[address] [address] Test Date: 2024-03-20 Pat Name: Walker Mcclure Department: Room: Gender: Male Applications Chemist: JACQUELYN : 1935 Requested By: Order Number: [id number] Reading MD: Ryan Zuniga Measurements Intervals [place] Rate: 56 P: 47 CA: 216 QRS: 26 QRSD: 116 T: 102 QT: 458 QTc: 441 Interpretive Statements Sinus bradycardia with 1st degree AV block ST & T wave abnormality, consider lateral ischemia Electronically Signed On 03-21-2024 15:25:08 PDT by Ryan Zuniga
[2024-03-20] MEDS: TET,DIPH,PERTUSS(ACELL),VAC/PF 0.5 ML SYRINGE IM (07:33)
[2024-03-20] MEDS: BACITRACIN OINT 0.9 GM PCKT 1 APPLIC TOP (08:56)
--- NOTE | 2024-03-20 08:58 | PC.NURSE ---
Skin tear/laceration noted on right second toe; MD Wild made aware. Wound cleaned and bacitracin applied per verbal order
[2024-03-20 10:26] VITALS: BP 131/63; PULSE 51; RESP 12; O2SAT 98
[2024-03-20 10:41] VITALS: TEMP 36.7
== END 2024-03-20 10:42 | disposition home or self-care (01) ==
PROVIDERS: Emergency Provider Emergency Medicine; PCP Nurse Practitioner Family
DX: S91.114A Laceration without foreign body of right lesser toe(s) without damage to nail, initial encounter (principal); S51.012A Laceration without foreign body of left elbow, initial encounter; S80.212A Abrasion, left knee, initial encounter; S80.211A Abrasion, right knee, initial encounter; R00.1 Bradycardia, unspecified; S09.90XA Unspecified injury of head, initial encounter; Z79.899 Other long term (current) drug therapy; W19.XXXA Unspecified fall, initial encounter; Z23 Encounter for immunization
CPT/HCPCS: 70450; 72125; 90471; 93005; 99284; 90715